=== PATIENT | female | born 1955 | race Caucasian/White ===

== ENCOUNTER 2016-11-06 12:51 | Emergency (ER) | payer MEDICAID, OTHER ==
[~2016-11-06] VITALS: Ht 160 cm; Wt 59.0 kg
[~2016-11-06 12:51] MED LIST: ASPI-869 PO; TRAM7.5P2 PO
[2016-11-06 13:58] LABS: BASOPHILS # (AUTO) 0.1 /CMM (0.0-0.2); BASOPHILS % (AUTO) 1.8 % (0.0-2.0); DIFF TOTAL % 100 %; EOSINOPHILS # (AUTO) 0.1 /CMM (0.0-0.7); HEMATOCRIT 51 % (33-45); HEMOGLOBIN 17.2 g/dL (11.5-14.8); LYMPHOCYTES # (AUTO) 1.1 /CMM (0.8-4.8); MEAN CORPUSCULAR HEMOGLOBIN 29 PG (26.0-33.0); MEAN CORPUSCULAR HGB CONC 34 g/dl (31.0-36.0); MEAN CORPUSCULAR VOLUME 87 fL (82-100); MONOCYTES # (AUTO) 0.5 /CMM (0.1-1.30); NEUTROPHILS # (AUTO) 4.8 /CMM (1.8-8.9); NEUTROPHILS % (AUTO) 73.2 % (43.0-81.0); PLATELET COUNT (AUTO) 181 /CMM (150-450); RED BLOOD CELL COUNT(AUTO) 5.87 MIL/uL (4.0-5.2); WHITE BLOOD COUNT (AUTO) 6.6 K/uL (4.3-11.0)
[2016-11-06] MEDS ORDERED: IV NS 0.9% 1,000 ML BAG IV ONE ×2 (14:00→14:30)
[2016-11-06 14:10] LABS: CALCIUM, SERUM 9.5 mg/dL (8.5-10.1); POTASSIUM 3.9 mmol/L (3.5-5.1)
[2016-11-06 14:20] LABS: ALBUMIN 3.9 g/dL (3.4-5.0); BILIRUBIN,DIRECT 0.1 mg/dL (0.0-0.2); BILIRUBIN,TOTAL 0.5 mg/dL (0.2-1.0); INDIRECT BILIRUBIN 0.4 mg/dL (0.0-1.1); TOTAL PROTEIN, SERUM 7.9 g/dL (6.4-8.2)
[2016-11-06] MEDS ORDERED: MORPHINE SULFATE INJ 4 MG/ML DISP.SYRIN ONE (14:21)
[2016-11-06] MEDS ORDERED: IV SET PRIMARY 1 EA INFUS.SET MC ONE (14:21)
[2016-11-06] MEDS ORDERED: ONDANSETRON HCL/PF 4 MG/2 ML VIAL ONE (14:21)
[2016-11-06] MEDS ORDERED: IV NS 0.9% 1,000 ML ONE (14:21)
[2016-11-06] MEDS ORDERED: MORPHINE SULFATE INJ 2 MG/ML DISP.SYRIN IV ONE (14:30)
[2016-11-06] MEDS ORDERED: ONDANSETRON HCL/PF 4 MG/2 ML VIAL IVP ONE (14:30)
[2016-11-06] MEDS ORDERED: IV NS 0.9% 250 ML IV ONE (15:13)
[2016-11-06] MEDS ORDERED: IOHEXOL-300 100 ML VIAL IV ONE (15:13)
[2016-11-06] MEDS ORDERED: CT SWABBABLE VALVE TRANS SET 1 EA INFUS.SET MC ONE (15:13)
[2016-11-06 16:15] LABS: ADD UA MICROSCOPIC YES; KETONES,URINE Negative (NEGATIVE); LEUKOCYTE ESTERASE ,URINE Trace (NEGATIVE)
[2016-11-06 16:20] LABS: ADD URINE CULTURE NO
[2016-11-06 17:00] VITALS: BP 132/68
== END 2016-11-06 17:00 | disposition home or self-care (01) ==
LOC: ER 12:53
DX: R10.30 Lower abdominal pain, unspecified (principal); J44.9 Chronic obstructive pulmonary disease, unspecified; Z88.5 Allergy status to narcotic agent; Z88.6 Allergy status to analgesic agent; Z59.0 Homelessness
CPT/HCPCS: 36415; 80048-TC; 80076-TC; 81000-TC; 83690-TC; 85025-TC; A4606; J2270; J2405; J7030; J7050; Q9967; Z7610

== ENCOUNTER 2016-11-11 14:13 | Emergency (ER) | payer MEDICAID ==
[~2016-11-11] VITALS: Ht 160 cm; Wt 49.9 kg
[2016-11-11] MEDS ORDERED: TRAMADOL HCL 50 MG TABLET PO ONE (14:30)
[2016-11-11] MEDS ORDERED: TRAMADOL HCL 50 MG TABLET ONE (14:36)
== END 2016-11-11 14:50 | disposition home or self-care (01) ==
LOC: ER 14:14
DX: R10.9 Unspecified abdominal pain (principal); J44.9 Chronic obstructive pulmonary disease, unspecified; N83.209 Unspecified ovarian cyst, unspecified side; Z59.0 Homelessness; Z79.82 Long term (current) use of aspirin; Z87.442 Personal history of urinary calculi; Z88.6 Allergy status to analgesic agent
CPT/HCPCS: 99283; A4606

== ENCOUNTER 2016-12-10 15:28 | Emergency (ER) | payer MEDICAID ==
[~2016-12-10] VITALS: Ht 160 cm; Wt 49.9 kg
[2016-12-10 15:38] VITALS: BP 117/88
[2016-12-10] MEDS ORDERED: IBUPROFEN 600 MG TABLET PO ONE ×2 (16:00→16:12)
== END 2016-12-10 16:35 | disposition left against medical advice (07) ==
LOC: ER 15:32
DX: M54.5 Low back pain (principal); J44.9 Chronic obstructive pulmonary disease, unspecified; N83.209 Unspecified ovarian cyst, unspecified side; Z88.5 Allergy status to narcotic agent; Z88.8 Allergy status to other drugs, medicaments and biological substances; Z59.0 Homelessness; Z79.82 Long term (current) use of aspirin; Z87.442 Personal history of urinary calculi; W01.198A Fall on same level from slipping, tripping and stumbling with subsequent striking against other object, initial encounter; Y92.89 Other specified places as the place of occurrence of the external cause; Y93.89 Activity, other specified; Y99.8 Other external cause status
CPT/HCPCS: A4606; Z7610

== ENCOUNTER → 2017-01-03 | Emergency (ER) | payer MEDICAID ==
[~2017-01-03] VITALS: Ht 157.5 cm; Wt 49.9 kg
[~2017-01-03] MED LIST changes: +TRAMADOL HCL 50 MG TABLET ONE; +TRAMADOL HCL 50 MG TABLET PO STA
[2017-01-03 14:56] VITALS: BP 125/68
== END | disposition home or self-care (01) ==
LOC: ER 14:47
DX: M54.5 Low back pain (principal); J44.9 Chronic obstructive pulmonary disease, unspecified; N20.0 Calculus of kidney; Z88.6 Allergy status to analgesic agent; Z79.82 Long term (current) use of aspirin; Z98.890 Other specified postprocedural states
CPT/HCPCS: A4606; Z7610

== ENCOUNTER 2017-04-03 10:16 | Emergency (ER) | payer MEDICAID ==
[~2017-04-03] VITALS: Ht 160 cm; Wt 49.9 kg
[~2017-04-03 10:16] MED LIST changes: -TRAMADOL HCL 50 MG TABLET ONE; -TRAMADOL HCL 50 MG TABLET PO STA
[2017-04-03 10:44] LABS: BASOPHILS # (AUTO) 0.1 /CMM (0.0-0.2); BASOPHILS % (AUTO) 1.1 % (0.0-2.0); EOSINOPHILS # (AUTO) 0.1 /CMM (0.0-0.7); EOSINOPHILS % (AUTO) 0.9 % (0.0-6.0); HEMATOCRIT 48 % (33-45); LYMPHOCYTES # (AUTO) 0.9 /CMM (0.8-4.8); LYMPHOCYTES % (AUTO) 14.4 % (20.0-44.0); MEAN CORPUSCULAR HEMOGLOBIN 30 PG (26.0-33.0); MEAN CORPUSCULAR HGB CONC 34 g/dl (31.0-36.0); MEAN CORPUSCULAR VOLUME 89 fL (82-100); MONOCYTES # (AUTO) 0.3 /CMM (0.1-1.30); NEUTROPHILS # (AUTO) 5.1 /CMM (1.8-8.9); NEUTROPHILS % (AUTO) 79.6 % (43.0-81.0); PLATELET COUNT (AUTO) 217 /CMM (150-450); RDW COEFFICIENT OF VARIATION 12.6 (11.5-15.0); RED BLOOD CELL COUNT(AUTO) 5.38 MIL/uL (4.0-5.2); WHITE BLOOD COUNT (AUTO) 6.5 K/uL (4.3-11.0)
[2017-04-03 10:52] LABS: CALCIUM, SERUM 9.5 mg/dL (8.5-10.1); POTASSIUM 4.1 mmol/L (3.5-5.1)
[2017-04-03] MEDS ORDERED: MORPHINE SULFATE INJ 2 MG/ML DISP.SYRIN IV ONE (11:00)
[2017-04-03] MEDS ORDERED: ONDANSETRON HCL/PF 4 MG/2 ML VIAL IVP ONE (11:00)
[2017-04-03] MEDS ORDERED: IV NS 0.9% 1,000 ML BAG IV ONE (11:00)
[2017-04-03] MEDS ORDERED: ONDANSETRON HCL/PF 4 MG/2 ML VIAL ONE (11:14)
[2017-04-03] MEDS ORDERED: MORPHINE SULFATE INJ 4 MG/ML DISP.SYRIN ONE (11:14)
[2017-04-03] MEDS ORDERED: IV SET PRIMARY 1 EA INFUS.SET MC ONE (11:15)
[2017-04-03] MEDS ORDERED: IV NS 0.9% 1,000 ML ONE (11:15)
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
--- NOTE | 2017-04-03 11:47 | NUR ---
PT REPORTS ADEQUATE PAIN RELIEF WITH MEDICATION ORDERED
[2017-04-03 12:01] LABS: APPEARANCE,URINE Slightly Cloudy (CLEAR); BILIRUBIN,URINE SMALL (NEGATIVE); BLOOD, URINE Large Ery/uL (NEGATIVE); COLOR,URINE Yellow (YELLOW); KETONES,URINE Trace (NEGATIVE); LEUKOCYTE ESTERASE ,URINE Small (NEGATIVE); NITRITE, URINE Negative (NEGATIVE); PROTEIN,URINE 100 mg/dl (NEGATIVE); UGLUCOSE Negative (NEGATIVE); UROBILINOGEN,URINE 0.2 EU/dL (0.2)
[2017-04-03 12:10] LABS: BACTERIA,URINE None seen /HPF (None Seen); RBC,URINE TOO NUMEROUS TO COUN /HPF (0-2); SQUAMOUS EPITHELIAL CELL,UR Few /HPF (None Seen)
--- NOTE | 2017-04-03 12:47 | NUR ---
Patient discharged to home in stable condition. Written and verbal after care instructions given. Patient verbalizes understanding of instruction. IV removed. Catheter intact and site benign. Pressure and 4x4 applied to site. No bleeding noted. AMBULATORY WITH STEADY GAIT. NAD NOTED.
[2017-04-03 12:48] VITALS: BP 124/85
== END 2017-04-03 12:49 | disposition home or self-care (01) ==
LOC: ER 10:17
DX: R31.9 Hematuria, unspecified (principal); R10.9 Unspecified abdominal pain; N83.209 Unspecified ovarian cyst, unspecified side; J44.9 Chronic obstructive pulmonary disease, unspecified; Z88.5 Allergy status to narcotic agent; Z88.6 Allergy status to analgesic agent; Z59.0 Homelessness
CPT/HCPCS: 36415; 80048-TC; 81000-TC; 85025-TC; A4606; J2270; J2405; J7030; Z7610

== ENCOUNTER 2017-04-30 10:29 | Emergency (ER) | payer MEDICAID ==
[~2017-04-30] VITALS: Ht 160 cm; Wt 49.9 kg
[2017-04-30 10:29] VITALS: BP 127/75
== END 2017-04-30 11:05 | disposition home or self-care (01) ==
LOC: ER 10:32
DX: M54.5 Low back pain (principal); J44.9 Chronic obstructive pulmonary disease, unspecified; N83.209 Unspecified ovarian cyst, unspecified side; Z88.5 Allergy status to narcotic agent; Z88.6 Allergy status to analgesic agent; Z87.442 Personal history of urinary calculi; Z79.82 Long term (current) use of aspirin; Z59.0 Homelessness
CPT/HCPCS: A4606; Z7502; Z7610

== ENCOUNTER 2017-05-26 12:38 | Inpatient (IN) | payer MEDICAID ==
[~2017-05-26] VITALS: Ht 160 cm; Wt 52.2 kg
[2017-05-26] MEDS ORDERED: MORPHINE SULFATE INJ 2 MG/ML DISP.SYRIN IV ONE (13:00)
[2017-05-26] MEDS ORDERED: ONDANSETRON HCL/PF 4 MG/2 ML VIAL IVP ONE (13:00)
[2017-05-26] MEDS ORDERED: IV NS 0.9% 1,000 ML BAG IV ONE (13:00)
[2017-05-26] MEDS ORDERED: ONDANSETRON HCL/PF 4 MG/2 ML VIAL ONE (13:04)
[2017-05-26] MEDS ORDERED: MORPHINE SULFATE INJ 4 MG/ML DISP.SYRIN ONE (13:05)
[2017-05-26 13:06] LABS: BASOPHILS # (AUTO) 0.1 /CMM (0.0-0.2); BASOPHILS % (AUTO) 1.2 % (0.0-2.0); EOSINOPHILS # (AUTO) 0.1 /CMM (0.0-0.7); EOSINOPHILS % (AUTO) 2.4 % (0.0-6.0); HEMATOCRIT 28 % (33-45); HEMOGLOBIN 9.5 g/dL (11.5-14.8); LYMPHOCYTES # (AUTO) 1.5 /CMM (0.8-4.8); LYMPHOCYTES % (AUTO) 30.3 % (20.0-44.0); MEAN CORPUSCULAR HEMOGLOBIN 29 PG (26.0-33.0); MEAN CORPUSCULAR HGB CONC 34 g/dl (31.0-36.0); MEAN CORPUSCULAR VOLUME 86 fL (82-100); MONOCYTES # (AUTO) 0.3 /CMM (0.1-1.30); MONOCYTES % (AUTO) 6.4 % (2.0-12.0); NEUTROPHILS # (AUTO) 3.1 /CMM (1.8-8.9); NEUTROPHILS % (AUTO) 59.7 % (43.0-81.0); PLATELET COUNT (AUTO) 208 /CMM (150-450); RDW COEFFICIENT OF VARIATION 13.4 (11.5-15.0); RED BLOOD CELL COUNT(AUTO) 3.29 MIL/uL (4.0-5.2); WHITE BLOOD COUNT (AUTO) 5.1 K/uL (4.3-11.0)
[2017-05-26 13:14] LABS: CALCIUM, SERUM 8.5 mg/dL (8.5-10.1); CREATININE 1.1 mg/dL (0.6-1.3)
[2017-05-26 13:27] LABS: ALBUMIN 3.3 g/dL (3.4-5.0); BILIRUBIN,TOTAL 0.2 mg/dL (0.2-1.0); INR 0.92 (0.87-1.13); PROTHROMBIN TIME 9.6 SECS (9.5-12.7); TOTAL PROTEIN, SERUM 6.4 g/dL (6.4-8.2)
[2017-05-26] MEDS ORDERED: FAMOTIDINE/PF INJ 20 MG/2 ML VIAL IV ONE ×2 (13:30)
[2017-05-26 13:57] LABS: APPEARANCE,URINE SL CLOUDY (CLEAR); BILIRUBIN,URINE NEGATIVE (NEGATIVE); BLOOD, URINE 2+ Ery/uL (NEGATIVE); COLOR,URINE YELLOW (YELLOW); KETONES,URINE NEGATIVE (NEGATIVE); LEUKOCYTE ESTERASE ,URINE TRACE (NEGATIVE); NITRITE, URINE NEGATIVE (NEGATIVE); PROTEIN,URINE NEGATIVE (NEGATIVE); UGLUCOSE NEGATIVE (NEGATIVE); UROBILINOGEN,URINE 0.2 EU/dL (0.2)
[2017-05-26 14:00] LABS: BACTERIA,URINE Few /HPF (None Seen); SQUAMOUS EPITHELIAL CELL,UR Few /HPF (None Seen); WBC,URINE 0-2 /HPF (0-3)
[2017-05-26] MEDS ORDERED: TRAM50TA92 PO (15:55)
[2017-05-26] MEDS ORDERED: IV NS 0.9% 1,000 ML IV PRN (17:07)
[2017-05-26] MEDS ORDERED: MAGNESIUM HYDROXIDE 30 ML UDC PO PRN (17:30)
[2017-05-26] MEDS ORDERED: ZOLPIDEM TARTRATE 5 MG TABLET PO PRN (17:30)
[2017-05-26] MEDS ORDERED: MAG HYDROX/AL HYDROX/SIMETH 30 ML UDC PO PRN (17:30)
[2017-05-26] MEDS ORDERED: Z GUARD REMEDY 2 OZ OINT TP PRN (17:30)
[2017-05-26] MEDS ORDERED: ONDANSETRON HCL/PF 4 MG/2 ML VIAL IVP PRN (17:30)
[2017-05-26] MEDS ORDERED: TRAMADOL HCL 50 MG TABLET PO PRN (17:30)
[2017-05-26] MEDS ORDERED: ACETAMINOPHEN 325 MG TABLET PO PRN (17:30)
[2017-05-26] MEDS ORDERED: HYDROCODONE/APAP 5/325MG 1 EACH TABLET PO PRN (17:30)
[2017-05-26 18:13] VITALS: BP 106/80
[2017-05-26] MEDS ORDERED: MORPHINE SULFATE INJ 2 MG/ML DISP.SYRIN IV PRN (18:30)
[2017-05-26 20:00] VITALS: BP 114/75
[2017-05-26 20:01] VITALS: BP 114/75
[2017-05-27] MEDS ORDERED: MORPHINE SULFATE INJ 2 MG/ML DISP.SYRIN ONE (02:58)
[2017-05-27] MEDS: MORPHINE SULFATE INJ 2 MG/ML DISP.SYRIN IV PRN ×3 (02:59→12:23)
[2017-05-27 07:01] LABS: BASOPHILS % (AUTO) 0.6 % (0.0-2.0); EOSINOPHILS # (AUTO) 0.3 /CMM (0.0-0.7); EOSINOPHILS % (AUTO) 7.1 % (0.0-6.0); HEMATOCRIT 27 % (33-45); HEMOGLOBIN 9.1 g/dL (11.5-14.8); LYMPHOCYTES # (AUTO) 1.7 /CMM (0.8-4.8); LYMPHOCYTES % (AUTO) 37.2 % (20.0-44.0); MEAN CORPUSCULAR HEMOGLOBIN 30 PG (26.0-33.0); MEAN CORPUSCULAR HGB CONC 34 g/dl (31.0-36.0); MEAN CORPUSCULAR VOLUME 88 fL (82-100); MONOCYTES # (AUTO) 0.4 /CMM (0.1-1.30); MONOCYTES % (AUTO) 7.6 % (2.0-12.0); NEUTROPHILS # (AUTO) 2.2 /CMM (1.8-8.9); NEUTROPHILS % (AUTO) 47.5 % (43.0-81.0); PLATELET COUNT (AUTO) 192 /CMM (150-450); RDW COEFFICIENT OF VARIATION 13.9 (11.5-15.0); RED BLOOD CELL COUNT(AUTO) 3.09 MIL/uL (4.0-5.2); WHITE BLOOD COUNT (AUTO) 4.6 K/uL (4.3-11.0)
[2017-05-27 07:14] LABS: CALCIUM, SERUM 8.2 mg/dL (8.5-10.1); CREATININE 0.9 mg/dL (0.6-1.3); MAGNESIUM 1.7 mg/dL (1.8-2.4); PHOSPHORUS 2.7 mg/dL (2.5-4.9); POTASSIUM 3.4 mmol/L (3.5-5.1)
[2017-05-27] MEDS ORDERED: PANTOPRAZOLE 40 MG TABLET.DR PO SCH (07:30)
[2017-05-27 08:00] VITALS: BP 131/73
[2017-05-27] MEDS ORDERED: POTASSIUM CHLORIDE 20 MEQ TAB.PRT.SR PO SCH (10:30)
[2017-05-27] MEDS: Magnesium 1GM/D5W 100ML PREMIX 100 ML IV SCH ×2 (10:51→11:52)
== END 2017-05-27 15:00 | disposition home or self-care (01) | DRG 241 ==
LOC: ER 12:39 → MED 17:05
PROVIDERS: ADMIT Internal Medicine; ATTEND Internal Medicine
DX: K27.9 Peptic ulcer, site unspecified, unspecified as acute or chronic, without hemorrhage or perforation (principal); E83.42 Hypomagnesemia; D63.8 Anemia in other chronic diseases classified elsewhere; E87.6 Hypokalemia; J44.9 Chronic obstructive pulmonary disease, unspecified; K21.9 Gastro-esophageal reflux disease without esophagitis; Z87.442 Personal history of urinary calculi; Z79.82 Long term (current) use of aspirin; K92.0 Hematemesis; Z88.6 Allergy status to analgesic agent; Z88.5 Allergy status to narcotic agent; Z98.890 Other specified postprocedural states
CPT/HCPCS: 36415; 71010-TC; 80048-TC; 80061-TC; 80076-TC; 81000-TC; 83605-TC; 83690-TC; 83735-TC; 84100-TC; 85025-TC; 85730-TC; 87081-TC; A4606; J2270; J2405; J3475; J3490; J7030; Z7610

== ENCOUNTER 2017-10-17 10:15 | Emergency (ER) | payer MEDICAID ==
[~2017-10-17 10:15] MED LIST changes: +TRAM50TA PO; -TRAM7.5P2 PO
--- NOTE | 2017-10-17 11:00 | NUR ---
CALLED IN WR- NO ANSWER
--- NOTE | 2017-10-17 11:10 | NUR ---
CALLED IN WR- NO ANSWER
--- NOTE | 2017-10-17 11:21 | NUR ---
CALLED IN WR- NO ANSWER
== END 2017-10-17 11:22 | disposition left against medical advice (07) ==
LOC: ER 10:21
DX: Z53.21 Procedure and treatment not carried out due to patient leaving prior to being seen by health care provider (principal)

== ENCOUNTER 2017-11-05 09:02 | Emergency (ER) | payer MEDICAID ==
[~2017-11-05] VITALS: Ht 160 cm; Wt 49.9 kg
[2017-11-05 09:02] VITALS: BP 109/77
--- NOTE | 2017-11-05 09:02 | NUR ---
[id number] FROM THE BUS STOP FOR ABD PAIN W/ N/V X 2 DAYS. NAD VSS RR EVEN AND UNLABORED. PENDING ER MD EVALUATION
[2017-11-05] MEDS ORDERED: ONDANSETRON 4 MG TAB.RAPDIS SL ONE (09:30)
[2017-11-05 09:52] LABS: BASOPHILS % (AUTO) 0.5 % (0.0-2.0); EOSINOPHILS % (AUTO) 0.6 % (0.0-6.0); HEMATOCRIT 38 % (33-45); HEMOGLOBIN 12.2 g/dL (11.5-14.8); LYMPHOCYTES # (AUTO) 0.9 /CMM (0.8-4.8); LYMPHOCYTES % (AUTO) 12.1 % (20.0-44.0); MEAN CORPUSCULAR HEMOGLOBIN 23 PG (26.0-33.0); MEAN CORPUSCULAR HGB CONC 32 g/dl (31.0-36.0); MEAN CORPUSCULAR VOLUME 71 fL (82-100); MONOCYTES # (AUTO) 0.4 /CMM (0.1-1.30); MONOCYTES % (AUTO) 4.9 % (2.0-12.0); NEUTROPHILS # (AUTO) 6.3 /CMM (1.8-8.9); NEUTROPHILS % (AUTO) 81.9 % (43.0-81.0); PLATELET COUNT (AUTO) 262 /CMM (150-450); RDW COEFFICIENT OF VARIATION 18.4 (11.5-15.0); RED BLOOD CELL COUNT(AUTO) 5.36 MIL/uL (4.0-5.2); WHITE BLOOD COUNT (AUTO) 7.6 K/uL (4.3-11.0)
[2017-11-05 10:00] LABS: CALCIUM, SERUM 9.2 mg/dL (8.5-10.1); CREATININE 1.1 mg/dL (0.6-1.3); POTASSIUM 4.1 mmol/L (3.5-5.1)
[2017-11-05 10:05] LABS: INR 0.95 (0.87-1.13)
[2017-11-05 10:06] LABS: BILIRUBIN,DIRECT 0.1 mg/dL (0.0-0.2); BILIRUBIN,TOTAL 0.4 mg/dL (0.2-1.0); TOTAL PROTEIN, SERUM 8.1 g/dL (6.4-8.2)
[2017-11-05] MEDS ORDERED: ONDANSETRON 4 MG TAB.RAPDIS ONE (10:15)
[2017-11-05 11:29] LABS: APPEARANCE,URINE SLIGHTLY HAZY (CLEAR); BILIRUBIN,URINE Negative (NEGATIVE); BLOOD, URINE Moderate Ery/uL (NEGATIVE); COLOR,URINE Yellow (YELLOW); KETONES,URINE Negative (NEGATIVE); LEUKOCYTE ESTERASE ,URINE Small (NEGATIVE); NITRITE, URINE Negative (NEGATIVE); PROTEIN,URINE Negative (NEGATIVE); UGLUCOSE Negative (NEGATIVE); UROBILINOGEN,URINE 0.2 EU/dL (0.2)
[2017-11-05 11:36] LABS: BACTERIA,URINE None seen /HPF (None Seen); SQUAMOUS EPITHELIAL CELL,UR Few /HPF (None Seen); YEAST,URINE Few /HPF (None Seen)
[2017-11-05] MEDS ORDERED: FLUCONAZOLE (100 MG) 100 MG TABLET ONE (12:14)
[2017-11-05] MEDS ORDERED: FLUCONAZOLE (100 MG) 100 MG TABLET PO ONE (12:30)
[2017-11-05] MEDS ORDERED: TRAMADOL HCL 50 MG TABLET ONE (12:51)
[2017-11-05] MEDS ORDERED: TRAMADOL HCL 50 MG TABLET PO ONE (13:00)
== END 2017-11-05 13:21 | disposition home or self-care (01) ==
LOC: ER 09:04
DX: B37.41 Candidal cystitis and urethritis (principal); R10.33 Periumbilical pain; R11.2 Nausea with vomiting, unspecified; J44.9 Chronic obstructive pulmonary disease, unspecified; Z87.442 Personal history of urinary calculi; Z88.5 Allergy status to narcotic agent; Z88.6 Allergy status to analgesic agent; Z79.82 Long term (current) use of aspirin; Z60.2 Problems related to living alone
CPT/HCPCS: 36415; 80048; 80076; 81001; 83690; 85025; 85730; 87086; 99284; A4606; Q0162; Z7610; 81000-TC

== ENCOUNTER 2018-03-28 08:58 | Emergency (ER) | payer MEDICAID ==
[~2018-03-28] VITALS: Ht 160 cm; Wt 46.0 kg
--- NOTE | 2018-03-28 09:10 | NUR ---
CALLED PATIENT TO TRIAGE FROM WAITING ROOM - NO RESPONSE. UNABLE TO TRIAGE PATIENT AT THIS TIME. WILL TRY AGAIN SHORTLY.
[2018-03-28 10:20] LABS: CALCIUM, SERUM 10.4 mg/dL (8.5-10.1); CARBON DIOXIDE 24 mmol/L (21-32); CHLORIDE 106 mmol/L (98-107); CREATININE 1.1 mg/dL (0.6-1.3); GLUCOSE 101 mg/dL (74-106); POTASSIUM 4.1 mmol/L (3.5-5.1); SODIUM SERUM 138 mmol/L (136-145); UREA NITROGEN, BLOOD 20 mg/dL (7-18)
[2018-03-28 10:21] LABS: BASOPHILS % (AUTO) 0.4 % (0.0-2.0); EOSINOPHILS % (AUTO) 0.2 % (0.0-6.0); HEMATOCRIT 41 % (33-45); HEMOGLOBIN 13.2 g/dL (11.5-14.8); LYMPHOCYTES # (AUTO) 0.7 /CMM (0.8-4.8); LYMPHOCYTES % (AUTO) 11.4 % (20.0-44.0); MEAN CORPUSCULAR HGB CONC 32 g/dl (31.0-36.0); MEAN CORPUSCULAR VOLUME 76 fL (82-100); MONOCYTES # (AUTO) 0.2 /CMM (0.1-1.30); MONOCYTES % (AUTO) 3.2 % (2.0-12.0); NEUTROPHILS # (AUTO) 5.5 /CMM (1.8-8.9); NEUTROPHILS % (AUTO) 84.8 % (43.0-81.0); PLATELET COUNT (AUTO) 257 /CMM (150-450); RDW COEFFICIENT OF VARIATION 18.9 (11.5-15.0); RED BLOOD CELL COUNT(AUTO) 5.38 MIL/uL (4.0-5.2); WHITE BLOOD COUNT (AUTO) 6.4 K/uL (4.3-11.0)
[2018-03-28 10:26] LABS: ALANINE AMINOTRANSFERASE 147 U/L (12-78); ALKALINE PHOSPHATASE 199 U/L (46-116); ASPARTATE AMINOTRANSFERASE 67 U/L (15-37); BILIRUBIN,DIRECT 0.1 mg/dL (0.0-0.2); BILIRUBIN,TOTAL 0.3 mg/dL (0.2-1.0); LIPASE 88 U/L (73-393); TOTAL PROTEIN, SERUM 8.6 g/dL (6.4-8.2)
[2018-03-28 10:38] LABS: INR 0.94 (0.85-1.15)
[2018-03-28 10:48] LABS: TROPONIN I < 0.017 ng/mL (0.00-0.056)
--- NOTE | 2018-03-28 11:25 | NUR ---
IV removed. Catheter intact and site benign. Pressure and 4x4 applied to site. No bleeding noted.
--- NOTE | 2018-03-28 11:25 | NUR ---
Patient discharged to home in stable condition. Written and verbal after care instructions given. Patient verbalizes understanding of instruction.
[2018-03-28 11:28] VITALS: BP 145/88
== END 2018-03-28 11:30 | disposition home or self-care (01) ==
LOC: ER 09:02
DX: K92.2 Gastrointestinal hemorrhage, unspecified (principal); R07.9 Chest pain, unspecified; J44.9 Chronic obstructive pulmonary disease, unspecified; Z88.6 Allergy status to analgesic agent; Z88.8 Allergy status to other drugs, medicaments and biological substances; Z60.2 Problems related to living alone; Z79.82 Long term (current) use of aspirin
CPT/HCPCS: 36415; 71045-TC; 80048-TC; 80076-TC; 83690-TC; 84484-TC; 85025-TC; 85730-TC; A4606; Z7610

== ENCOUNTER 2019-11-27 11:52 | Emergency (ER) | payer MEDICAID ==
[~2019-11-27] VITALS: Ht 152.4 cm; Wt 52.2 kg
[2019-11-27] MEDS ORDERED: MORPHINE SULFATE INJ 2 MG/ML DISP.SYRIN ONE (12:26)
--- NOTE | 2019-11-27 12:28 | NUR ---
BIB RA FROM STREET C/O SOB AND WEAKNESS. "I HAVE PAIN EVERYWHERE". PT REPORTS PAIN OF 9/10 AND IS VISUALLY UPSET. PT IS HOMELESS. AOX4, VSS, RR EVEN AND UNLABORED ON RA. AMBULATORY. SKIN IS WARM, DRY, INTACT. NO ACUTE DISTRESS NOTED. MADE COMFORTABLE, ON MONITOR, READY FOR EVAL.
[2019-11-27] MEDS ORDERED: MORPHINE SULFATE INJ 2 MG/ML DISP.SYRIN IV ONE (12:30)
[2019-11-27 12:42] LABS: BASOPHILS # (AUTO) 0.1 /CMM (0.0-0.2); BASOPHILS % (AUTO) 1.3 % (0.0-2.0); EOSINOPHILS % (AUTO) 0.9 % (0.0-6.0); HEMATOCRIT 41 % (33-45); HEMOGLOBIN 13.3 g/dL (11.5-14.8); LYMPHOCYTES # (AUTO) 1.2 /CMM (0.8-4.8); MEAN CORPUSCULAR HGB CONC 32 g/dl (31.0-36.0); MEAN CORPUSCULAR VOLUME 82 fL (82-100); MONOCYTES # (AUTO) 0.7 /CMM (0.1-1.30); NEUTROPHILS # (AUTO) 6.8 /CMM (1.8-8.9); NEUTROPHILS % (AUTO) 75.8 % (43.0-81.0); PLATELET COUNT (AUTO) 301 /CMM (150-450); RED BLOOD CELL COUNT(AUTO) 5.06 MIL/uL (4.0-5.2); WHITE BLOOD COUNT (AUTO) 8.9 K/uL (4.3-11.0)
[2019-11-27 12:50] LABS: CALCIUM, SERUM 10.2 mg/dL (8.5-10.1); CARBON DIOXIDE 25 mmol/L (21-32); CHLORIDE 102 mmol/L (98-107); CREATININE 1.2 mg/dL (0.6-1.3); GLUCOSE 98 mg/dL (74-106); POTASSIUM 3.7 mmol/L (3.5-5.1); SODIUM SERUM 141 mmol/L (136-145); UREA NITROGEN, BLOOD 29 mg/dL (7-18)
--- NOTE | 2019-11-27 12:50 | NUR ---
URINE SENT TO STAT LAB
[2019-11-27 13:01] LABS: ALANINE AMINOTRANSFERASE 67 U/L (12-78); ALBUMIN 4.4 g/dL (3.4-5.0); ALKALINE PHOSPHATASE 166 U/L (46-116); ASPARTATE AMINOTRANSFERASE 46 U/L (15-37); BILIRUBIN,DIRECT 0.2 mg/dL (0.0-0.2); BILIRUBIN,TOTAL 0.7 mg/dL (0.2-1.0); LIPASE 98 U/L (73-393)
--- NOTE | 2019-11-27 13:05 | NUR ---
LAB NEEDS MORE URINE, PT GIVEN WATER
--- NOTE | 2019-11-27 13:43 | NUR ---
URINE ORDER DC PER
--- NOTE | 2019-11-27 13:56 | NUR ---
Patient discharged to home in stable condition. Written and verbal after care instructions given. Patient verbalizes understanding of instruction. PT GIVEN FOOD AND TAP CARD ON DISCHARGE
[2019-11-27 14:11] VITALS: BP 138/76
== END 2019-11-27 14:11 | disposition home or self-care (01) ==
LOC: ER 11:54
DX: R10.30 Lower abdominal pain, unspecified (principal); R11.0 Nausea; J44.9 Chronic obstructive pulmonary disease, unspecified; Z87.442 Personal history of urinary calculi; Z98.890 Other specified postprocedural states; Z88.6 Allergy status to analgesic agent; Z88.5 Allergy status to narcotic agent; Z60.2 Problems related to living alone; Z79.82 Long term (current) use of aspirin; Z79.899 Other long term (current) drug therapy
CPT/HCPCS: 36415; 71045; 80048; 80076; 83690; 84484; 85025; 96374; 99284; J2270

== ENCOUNTER 2020-06-22 12:38 | Emergency (ER) | payer MEDICAID ==
[~2020-06-22] VITALS: Ht 157.5 cm; Wt 52.2 kg
[2020-06-22 12:47] VITALS: BP 155/99
[2020-06-22] MEDS ORDERED: TRAMADOL HCL 50 MG TABLET ONE (12:54)
[2020-06-22] MEDS ORDERED: TRAMADOL HCL 50 MG TABLET PO ONE (13:00)
== END 2020-06-22 13:04 | disposition home or self-care (01) ==
LOC: ER 12:43
DX: M54.9 Dorsalgia, unspecified (principal); J44.9 Chronic obstructive pulmonary disease, unspecified; Z87.442 Personal history of urinary calculi; Z98.890 Other specified postprocedural states; Z88.6 Allergy status to analgesic agent; Z88.5 Allergy status to narcotic agent; Z60.2 Problems related to living alone; Z79.899 Other long term (current) drug therapy

== ENCOUNTER 2021-05-16 11:17 | Emergency (ER) | payer MEDICAID ==
[~2021-05-16] VITALS: Ht 157.5 cm; Wt 53.1 kg
[2021-05-16 11:29] VITALS: BP 110/71
--- NOTE | 2021-05-16 11:40 | NUR ---
PT REFUSED COVID TEST.
--- NOTE | 2021-05-16 11:45 | NUR ---
Patient discharged to home in stable condition. Written and verbal after care instructions given. Patient verbalizes understanding of instruction.
== END 2021-05-16 11:47 | disposition home or self-care (01) ==
LOC: ER 11:17
DX: M54.5 Low back pain (principal); G89.29 Other chronic pain; J44.9 Chronic obstructive pulmonary disease, unspecified; Z87.442 Personal history of urinary calculi; Z98.890 Other specified postprocedural states; Z88.6 Allergy status to analgesic agent; Z88.5 Allergy status to narcotic agent; Z60.2 Problems related to living alone; Z79.82 Long term (current) use of aspirin; Z79.899 Other long term (current) drug therapy

== ENCOUNTER 2022-02-25 15:47 | Emergency (ER) | payer MEDICAID ==
[~2022-02-25] VITALS: Ht 157.5 cm; Wt 49.9 kg
[2022-02-25 15:51] VITALS: BP 116/75
--- NOTE | 2022-02-25 15:51 | NUR ---
[facility] C/O ABD PAIN AND LOWER BACK PAIN x 2DAYS, TO ER 19, HOOKED TO MONITOR, VSS. CHANGED TO HOSP GOWN,WARM BLANKET PROVIDED. AWAITING MD SWIFT
--- NOTE | 2022-02-25 15:59 | NUR ---
URINE SPECIMEN COLLECTED AND SENT TO LAB.
[2022-02-25 16:21] LABS: BILIRUBIN,URINE NEGATIVE (NEGATIVE); COLOR,URINE YELLOW (YELLOW); LEUKOCYTE ESTERASE ,URINE SMALL (NEGATIVE); NITRITE, URINE NEGATIVE (NEGATIVE); PROTEIN,URINE NEGATIVE (NEGATIVE); UGLUCOSE NEGATIVE (NEGATIVE); UROBILINOGEN,URINE 0.2 EU/dL (0.2)
[2022-02-25 16:34] LABS: BACTERIA,URINE 2+ /HPF (None Seen); MUCUS,URINE Few /LPF (None Seen); SQUAMOUS EPITHELIAL CELL,UR Few /HPF (None Seen); URINE AMORPHOUS URATE Few /HPF (None Seen); WBC,URINE 81-100 /HPF (0-3)
[2022-02-25] MEDS ORDERED: TRAM50TA2 PO (17:05)
[2022-02-25] MEDS ORDERED: CEPH500C2 PO (17:05)
--- NOTE | 2022-02-25 17:07 | NUR ---
Patient discharged to home in stable condition. Written and verbal after care instructions given. Patient verbalizes understanding of instruction.
== END 2022-02-25 17:08 | disposition home or self-care (01) ==
LOC: ER 15:51
DX: N39.0 Urinary tract infection, site not specified (principal); J44.9 Chronic obstructive pulmonary disease, unspecified; Z98.890 Other specified postprocedural states; Z88.6 Allergy status to analgesic agent; Z60.2 Problems related to living alone; Z79.82 Long term (current) use of aspirin; Z79.899 Other long term (current) drug therapy
CPT/HCPCS: 81001; 87086-TC

== ENCOUNTER 2022-04-05 12:49 | Emergency (ER) | payer MEDICAID ==
[~2022-04-05] VITALS: Ht 160 cm; Wt 47.6 kg
[~2022-04-05 12:49] MED LIST changes: +CEPH500C2 PO; +TRAM50TA2 PO
--- NOTE | 2022-04-05 12:55 | NUR ---
[facility] C/O LOWER BACK PAIN x 2DAYS. 9/10 PS, NO TRAUMA. RATES PAIN /10. IN ROOM AIR AND DENIES SOB. RESPIRATION REGULAR AND UNLABORED. WILL CONTINUE TO MONITOR THE PATIENT
[2022-04-05] MEDS ORDERED: TRAMADOL HCL 50 MG TABLET PO ONE (14:30)
--- NOTE | 2022-04-05 14:34 | NUR ---
URINE COLLECTED AND SENT TO THE LAB
[2022-04-05 15:31] LABS: BILIRUBIN,URINE NEGATIVE (NEGATIVE); COLOR,URINE YELLOW (YELLOW); LEUKOCYTE ESTERASE ,URINE MODERATE (NEGATIVE); NITRITE, URINE NEGATIVE (NEGATIVE); PROTEIN,URINE 30 mg/dl (NEGATIVE); UGLUCOSE NEGATIVE (NEGATIVE); UROBILINOGEN,URINE 0.2 EU/dL (0.2)
[2022-04-05 15:49] LABS: BACTERIA,URINE 2+ /HPF (None Seen); RBC,URINE 51-80 /HPF (0-2); WBC,URINE TOO NUMEROUS TO COUN /HPF (0-3)
[2022-04-05 15:50] LABS: SQUAMOUS EPITHELIAL CELL,UR Few /HPF (None Seen); YEAST,URINE Few /HPF (None Seen)
[2022-04-05] MEDS ORDERED: TRAM-351 PO (15:59)
[2022-04-05] MEDS ORDERED: SULF1TAB48 PO (15:59)
[2022-04-05] MEDS ORDERED: TRAM50TA2 PO (16:28)
[2022-04-05 16:48] VITALS: BP 121/47
[2022-04-11] MEDS ORDERED: NAPR-1192 PO (15:41)
== END 2022-04-05 16:48 | disposition home or self-care (01) ==
LOC: ER 12:52
DX: M54.50 Low back pain, unspecified (principal); N39.0 Urinary tract infection, site not specified; J44.9 Chronic obstructive pulmonary disease, unspecified; Z87.442 Personal history of urinary calculi; Z87.42 Personal history of other diseases of the female genital tract; Z88.8 Allergy status to other drugs, medicaments and biological substances; Z60.2 Problems related to living alone; Z79.899 Other long term (current) drug therapy
CPT/HCPCS: 81001; 87086-TC

== ENCOUNTER 2022-04-09 11:26 | Emergency (ER) | payer MEDICAID ==
[~2022-04-09] VITALS: Ht 160 cm; Wt 47.6 kg
[~2022-04-09 11:26] MED LIST changes: +SULF1TAB48 PO
[2022-04-09 11:30] VITALS: BP 110/61
--- NOTE | 2022-04-09 11:30 | NUR ---
c/o lower back pain since yesterday 12/22 ps
[2022-04-09] MEDS ORDERED: TRAMADOL HCL 50 MG TABLET PO ONE (12:30)
[2022-04-09] MEDS ORDERED: TRAMADOL HCL 50 MG TABLET ONE (12:33)
--- NOTE | 2022-04-09 12:36 | NUR ---
Patient discharged to home in stable condition. Written and verbal after care instructions given. Patient verbalizes understanding of instruction.
[2022-04-11] MEDS ORDERED: NAPR-1192 PO (15:41)
== END 2022-04-09 12:36 | disposition home or self-care (01) ==
LOC: ER 11:30
DX: G89.29 Other chronic pain (principal); M54.50 Low back pain, unspecified; J44.9 Chronic obstructive pulmonary disease, unspecified; Z87.442 Personal history of urinary calculi; Z87.42 Personal history of other diseases of the female genital tract; Z88.8 Allergy status to other drugs, medicaments and biological substances; Z60.2 Problems related to living alone; Z79.899 Other long term (current) drug therapy

== ENCOUNTER → 2022-04-11 | Emergency (ER) | payer MEDICAID ==
[~2022-04-11] VITALS: Ht 160 cm; Wt 49.9 kg
[~2022-04-11] MED LIST changes: +NAPR-1192 PO; +NAPROXEN 250 MG TABLET ONE
[2022-04-11 14:11] VITALS: BP 139/85
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
[2022-04-11] MEDS: NAPROXEN 250 MG TABLET PO ONE ×2 (15:17→15:31)
--- NOTE | 2022-04-11 15:44 | NUR ---
Patient discharged to home in stable condition. Written and verbal after care instructions given. Patient verbalizes understanding of instruction.
== END | disposition home or self-care (01) ==
LOC: ER 14:20
DX: M54.50 Low back pain, unspecified (principal); J44.9 Chronic obstructive pulmonary disease, unspecified; Z87.442 Personal history of urinary calculi; Z87.42 Personal history of other diseases of the female genital tract; Z88.8 Allergy status to other drugs, medicaments and biological substances; Z60.2 Problems related to living alone; Z79.899 Other long term (current) drug therapy
CPT/HCPCS: 72110-TC

== ENCOUNTER 2022-04-18 16:37 | Emergency (ER) | payer MEDICAID ==
[~2022-04-18] VITALS: Ht 160 cm; Wt 49.9 kg
[~2022-04-18 16:37] MED LIST changes: -NAPROXEN 250 MG TABLET ONE
[2022-04-18 17:37] VITALS: BP 132/89
[2022-04-18] MEDS ORDERED: PRED20TA PO (17:56)
[2022-04-18] MEDS ORDERED: CYCL5TAB PO (17:56)
--- NOTE | 2022-04-18 18:09 | NUR ---
REFUSED PRESCRIPTION SINCE IT WASN'T TRAMADOL
== END 2022-04-18 18:09 | disposition home or self-care (01) ==
LOC: ER 16:38
DX: G89.29 Other chronic pain (principal); M54.50 Low back pain, unspecified; J44.9 Chronic obstructive pulmonary disease, unspecified; Z87.442 Personal history of urinary calculi; Z87.42 Personal history of other diseases of the female genital tract; Z88.8 Allergy status to other drugs, medicaments and biological substances; Z60.2 Problems related to living alone; Z79.899 Other long term (current) drug therapy

== ENCOUNTER 2024-11-10 01:57 | Inpatient (IN) | payer MEDICAID, OTHER ==
[~2024-11-10] VITALS: Ht 157.5 cm; Wt 65.3 kg
[~2024-11-10 01:57] MED LIST changes: +CYCL5TAB PO; +LEVO750T46 PO; +PRED20TA PO
[2024-11-10] MEDS: IV NS 0.9% 1,000 ML IV ONE ×2 (03:00→05:30)
[2024-11-10 03:08] LABS: APPEARANCE,URINE CLEAR (CLEAR); BILIRUBIN,URINE NEGATIVE (NEGATIVE); BLOOD, URINE 2+ Ery/uL (NEGATIVE); COLOR,URINE YELLOW (YELLOW); KETONES,URINE NEGATIVE (NEGATIVE); LEUKOCYTE ESTERASE ,URINE TRACE (NEGATIVE); NITRITE, URINE NEGATIVE (NEGATIVE); PROTEIN,URINE 2+ mg/dl (NEGATIVE); UGLUCOSE NEGATIVE (NEGATIVE); UROBILINOGEN,URINE 0.2 EU/dL (0.2)
[2024-11-10 03:10] LABS: BASOPHILS % (AUTO) 0.3 % (0.0-2.0); EOSINOPHILS % (AUTO) 0.2 % (0.0-6.0); HEMATOCRIT 47 % (33-45); HEMOGLOBIN 15.6 g/dL (11.5-14.8); LYMPHOCYTES # (AUTO) 0.5 K/uL (0.8-4.8); LYMPHOCYTES % (AUTO) 4.7 % (20.0-44.0); MEAN CORPUSCULAR HEMOGLOBIN 28 PG (26.0-33.0); MEAN CORPUSCULAR HGB CONC 33 g/dl (31.0-36.0); MEAN CORPUSCULAR VOLUME 84 fL (82-100); MONOCYTES # (AUTO) 0.7 K/uL (0.1-1.30); MONOCYTES % (AUTO) 6.7 % (2.0-12.0); NEUTROPHILS # (AUTO) 9.2 K/uL (1.8-8.9); NEUTROPHILS % (AUTO) 88.1 % (43.0-81.0); PLATELET COUNT (AUTO) 151 K/uL (150-450); RED BLOOD CELL COUNT(AUTO) 5.65 MIL/uL (4.0-5.2); RED CELL DISTRIBUTION WIDTH 19.2 % (11.5-15.0); WHITE BLOOD COUNT (AUTO) 10.4 K/uL (4.3-11.0)
[2024-11-10 03:11] LABS: ADD URINE CULTURE NO; BACTERIA,URINE Few /HPF (None Seen)
[2024-11-10 03:12] LABS: MUCUS,URINE Moderate /LPF (None Seen)
[2024-11-10 03:14] LABS: CALCIUM, SERUM 9.8 mg/dL (8.5-10.1); CREATININE 1.1 mg/dL (0.6-1.3); POTASSIUM 4.1 mmol/L (3.5-5.1)
[2024-11-10 03:27] LABS: ALBUMIN 3.7 g/dL (3.4-5.0); BILIRUBIN,TOTAL 0.6 mg/dL (0.2-1.0); TOTAL PROTEIN, SERUM 8.2 g/dL (6.4-8.2)
[2024-11-10] MEDS ORDERED: CEFTRIAXONE 1GM BAG (ER ONLY) 50 ML IV ONE (03:59)
[2024-11-10] MEDS: CEFTRIAXONE 1 G in IV D5W 50 ML IV ONE (04:00)
[2024-11-10] MEDS ORDERED: ONDANSETRON HCL/PF 4 MG/2 ML VIAL IVP PRN (05:30)
[2024-11-10] MEDS ORDERED: MAG HYDROX/AL HYDROX/SIMETH 30 ML UDC PO PRN (05:30)
[2024-11-10] MEDS ORDERED: ACETAMINOPHEN 325 MG TABLET PO PRN (05:30)
[2024-11-10] MEDS ORDERED: Z GUARD REMEDY 4 OZ OINT TP PRN (05:30)
[2024-11-10] MEDS: AZITHROMYCIN 500 MG in IV D5W 250 ML IV SCH (05:30)
[2024-11-10] MEDS ORDERED: ZOLPIDEM TARTRATE 5 MG TABLET PO PRN (05:30)
[2024-11-10] MEDS ORDERED: MAGNESIUM HYDROXIDE 30 ML UDC PO PRN ×2 (05:30→14:30)
[2024-11-10] MEDS ORDERED: AZITHROMYCIN 500 MG VIAL ONE (05:44)
[2024-11-10] MEDS ORDERED: ENOXAPARIN SODIUM 30 MG/0.3 ML DISP.SYRIN ONE (05:51)
[2024-11-10 05:58] LABS: LACTIC ACID 2.2 mmol/L (0.4-2.0)
[2024-11-10] MEDS ORDERED: AZITHROMYCIN 500 MG in IV D5W 250 ML IV SCH (06:00)
[2024-11-10] MEDS: ENOXAPARIN SODIUM 30 MG/0.3 ML DISP.SYRIN SQ SCH (06:01)
[2024-11-10] MEDS ORDERED: IPRATROPIUM NEB FS 0.5 MG/2.5 ML AMPUL.NEB NEB PRN (08:30)
[2024-11-10] MEDS ORDERED: ALBUTEROL FS 2.5 MG/3 ML VIAL.NEB NEB PRN (08:30)
[2024-11-10] MEDS ORDERED: CYCLOBENZAPRINE 10 MG TABLET PO PRN (09:00)
[2024-11-10] MEDS ORDERED: PANTOPRAZOLE 40 MG VIAL IV SCH (09:00)
[2024-11-10 09:21] LABS: LACTIC ACID REFLEX 1.9 mmol/L (0.4-1.9)
[2024-11-10 09:27] LABS: BILIRUBIN,DIRECT 0.1 mg/dL (0.0-0.2)
[2024-11-10] MEDS: TRAMADOL HCL 50 MG TABLET PO PRN (10:12)
[2024-11-10] MEDS: PANTOPRAZOLE 40 MG TABLET.DR PO SCH (10:12)
[2024-11-10] MEDS: ENOXAPARIN SODIUM 40 MG/0.4 ML DISP.SYRIN SQ SCH (10:13)
[2024-11-10] MEDS ORDERED: FAMO20TA8 PO (11:13)
[2024-11-10] MEDS ORDERED: TEMA15CA PO (11:13)
[2024-11-10] MEDS ORDERED: GABA300C PO (11:13)
[2024-11-10] MEDS ORDERED: FERR325T24 PO (11:13)
[2024-11-10] MEDS ORDERED: QUET300T2 PO (11:13)
[2024-11-10] MEDS ORDERED: LORA-259 PO (11:13)
[2024-11-10] MEDS ORDERED: DOCU100C36 PO (11:13)
[2024-11-10] MEDS ORDERED: ATOR40TA PO (11:13)
[2024-11-10] MEDS ORDERED: QUET200T PO (11:13)
[2024-11-10] MEDS ORDERED: MAGN400O6 PO (11:13)
[2024-11-10 12:00] VITALS: BP 145/88; TEMP 100; O2SAT 94
[2024-11-10] MEDS: MORPHINE SULFATE INJ 2 MG/ML DISP.SYRIN IV PRN (13:55)
[2024-11-10] MEDS: IV 1/2NS 1000 ML 1,000 ML IV PRN (13:57)
[2024-11-10] MEDS ORDERED: TEMAZEPAM 15 MG CAPSULE PO PRN (14:30)
[2024-11-10] MEDS ORDERED: LORAZEPAM 1 MG TABLET PO PRN (14:30)
[2024-11-10] MEDS: QUETIAPINE FUMARATE 100 MG TABLET PO SCH ×2 (14:31→22:00)
[2024-11-10 16:00] VITALS: BP 119/90; TEMP 98.8; O2SAT 94
[2024-11-10] MEDS: GABAPENTIN 300 MG CAPSULE PO SCH (16:25)
[2024-11-10] MEDS: DOCUSATE SODIUM 100 MG CAPSULE PO SCH (16:25)
[2024-11-10 20:00] VITALS: BP 153/86; TEMP 98.6; O2SAT 98
[2024-11-10] MEDS: ATORVASTATIN 40 MG TABLET PO SCH (22:00)
[2024-11-11] VITALS: BP 143/90; TEMP 98.8; O2SAT 95
[2024-11-11 04:00] VITALS: BP 120/80; TEMP 98.4; O2SAT 99
[2024-11-11] MEDS: CEFTRIAXONE 1 G in IV D5W 50 ML IV SCH (05:04)
[2024-11-11] MEDS: AZITHROMYCIN 500 MG in IV D5W 250 ML IV SCH (06:03)
[2024-11-11 07:00] VITALS: BP 131/81; TEMP 98.4; O2SAT 97
[2024-11-11 07:36] LABS: CREATININE 0.7 mg/dL (0.6-1.3); MAGNESIUM 2.2 mg/dL (1.8-2.4); PHOSPHORUS 3.2 mg/dL (2.5-4.9); POTASSIUM 3.6 mmol/L (3.5-5.1)
[2024-11-11 07:41] LABS: BASOPHILS % (AUTO) 0.4 % (0.0-2.0); EOSINOPHILS % (AUTO) 0.1 % (0.0-6.0); HEMATOCRIT 41 % (33-45); LYMPHOCYTES # (AUTO) 1.1 K/uL (0.8-4.8); MEAN CORPUSCULAR HEMOGLOBIN 28 PG (26.0-33.0); MEAN CORPUSCULAR HGB CONC 34 g/dl (31.0-36.0); MEAN CORPUSCULAR VOLUME 83 fL (82-100); MONOCYTES % (AUTO) 16.5 % (2.0-12.0); NEUTROPHILS # (AUTO) 3.7 K/uL (1.8-8.9); PLATELET COUNT (AUTO) 134 K/uL (150-450); RED BLOOD CELL COUNT(AUTO) 4.99 MIL/uL (4.0-5.2); RED CELL DISTRIBUTION WIDTH 19.2 % (11.5-15.0); WHITE BLOOD COUNT (AUTO) 5.8 K/uL (4.3-11.0)
[2024-11-11] MEDS: FAMOTIDINE (20 MG) 20 MG TABLET PO SCH (08:12)
[2024-11-11] MEDS: FERROUS SULFATE (325 MG) 325 MG/TAB TABLET PO SCH (08:12)
[2024-11-11 16:00] VITALS: BP 97/57; TEMP 98.2; O2SAT 93
[2024-11-11 20:39] VITALS: BP 107/74; TEMP 98.8; O2SAT 98
[2024-11-12 04:13] VITALS: BP 123/74; TEMP 98.4; O2SAT 94
[2024-11-12 04:14] VITALS: BP 123/74; TEMP 98.4; O2SAT 95
[2024-11-12 06:39] LABS: BASOPHILS % (AUTO) 0.3 % (0.0-2.0); EOSINOPHILS # (AUTO) 0.1 K/uL (0.0-0.7); EOSINOPHILS % (AUTO) 1.1 % (0.0-6.0); HEMATOCRIT 44 % (33-45); HEMOGLOBIN 14.6 g/dL (11.5-14.8); LYMPHOCYTES # (AUTO) 1.5 K/uL (0.8-4.8); LYMPHOCYTES % (AUTO) 20.7 % (20.0-44.0); MEAN CORPUSCULAR HEMOGLOBIN 28 PG (26.0-33.0); MEAN CORPUSCULAR HGB CONC 33 g/dl (31.0-36.0); MEAN CORPUSCULAR VOLUME 84 fL (82-100); MONOCYTES % (AUTO) 14.6 % (2.0-12.0); NEUTROPHILS # (AUTO) 4.4 K/uL (1.8-8.9); NEUTROPHILS % (AUTO) 63.3 % (43.0-81.0); PLATELET COUNT (AUTO) 132 K/uL (150-450); RED BLOOD CELL COUNT(AUTO) 5.27 MIL/uL (4.0-5.2); RED CELL DISTRIBUTION WIDTH 19.1 % (11.5-15.0)
[2024-11-12 06:41] LABS: CALCIUM, SERUM 8.3 mg/dL (8.5-10.1); CREATININE 0.9 mg/dL (0.6-1.3); POTASSIUM 3.2 mmol/L (3.5-5.1)
[2024-11-12 07:00] VITALS: BP 124/98; TEMP 98.4; O2SAT 94
[2024-11-12] MEDS: POTASSIUM CHLORIDE 20 MEQ TAB.PRT.SR PO SCH (11:21)
[2024-11-12 12:00] VITALS: BP 111/68; TEMP 98.4; O2SAT 95
[2024-11-12 16:00] VITALS: BP 107/69; TEMP 98.4; O2SAT 95
[2024-11-12 20:00] VITALS: BP 116/73; TEMP 99.1; O2SAT 97
[2024-11-13] VITALS: BP 120/64; TEMP 98.7; O2SAT 96
[2024-11-13 07:30] VITALS: BP 119/74; TEMP 99.1; O2SAT 94
[2024-11-13 07:36] LABS: BASOPHILS % (AUTO) 0.4 % (0.0-2.0); EOSINOPHILS # (AUTO) 0.2 K/uL (0.0-0.7); EOSINOPHILS % (AUTO) 2.8 % (0.0-6.0); HEMATOCRIT 42 % (33-45); LYMPHOCYTES # (AUTO) 1.6 K/uL (0.8-4.8); LYMPHOCYTES % (AUTO) 24.1 % (20.0-44.0); MEAN CORPUSCULAR HEMOGLOBIN 28 PG (26.0-33.0); MEAN CORPUSCULAR HGB CONC 34 g/dl (31.0-36.0); MEAN CORPUSCULAR VOLUME 82 fL (82-100); MONOCYTES # (AUTO) 0.8 K/uL (0.1-1.30); MONOCYTES % (AUTO) 12.1 % (2.0-12.0); NEUTROPHILS # (AUTO) 3.9 K/uL (1.8-8.9); NEUTROPHILS % (AUTO) 60.6 % (43.0-81.0); PLATELET COUNT (AUTO) 143 K/uL (150-450); RED BLOOD CELL COUNT(AUTO) 5.06 MIL/uL (4.0-5.2); RED CELL DISTRIBUTION WIDTH 18.9 % (11.5-15.0); WHITE BLOOD COUNT (AUTO) 6.5 K/uL (4.3-11.0)
[2024-11-13 08:55] LABS: CALCIUM, SERUM 8.5 mg/dL (8.5-10.1); CREATININE 0.8 mg/dL (0.6-1.3); POTASSIUM 3.3 mmol/L (3.5-5.1)
[2024-11-13] MEDS ORDERED: AZIT250T13 PO (09:02)
[2024-11-13 13:51] LABS: AMPHETAMINE, URINE NEGATIVE (NEGATIVE); BARBITURATE, URINE NEGATIVE (NEGATIVE); BENZODIAZEPINE, URINE NEGATIVE (NEGATIVE); CANNABINOID, URINE NEGATIVE (NEGATIVE); COCCAINE, URINE NEGATIVE (NEGATIVE); PHENCYCLIDINE SCREEN,URINE NEGATIVE (NEGATIVE)
[2024-11-13 13:53] LABS: OPIATE, URINE POSITIVE (NEGATIVE)
[2024-11-13 16:00] VITALS: BP 123/79; TEMP 100.4; O2SAT 94
[2024-11-14] MEDS: AZITHROMYCIN 250 MG TABLET PO SCH (05:52)
[2024-11-14 07:30] VITALS: BP_SYST 114; BP_SYST 118; BP_DIAS 60; BP_DIAS 76; TEMP 98.8; TEMP 99.5; O2SAT 91; O2SAT 96
[2024-11-14 16:00] VITALS: BP 116/78; TEMP 99.3; O2SAT 90
[2024-11-14 20:00] VITALS: BP 120/70; TEMP 98.6; O2SAT 90
[2024-11-14] MEDS: POTASSIUM CHLORIDE 20 MEQ TAB.PRT.SR PO ONE (21:07)
== END 2024-11-14 21:46 | DRG 139 ==
LOC: ER 01:58 → TRANSITION 05:19 → TELE 08:52 → MED 11-13 06:46
PROVIDERS: ADMIT Nurse Practitioner Acute Care; ATTEND Internal Medicine
DX: J12.9 Viral pneumonia, unspecified (principal); J96.01 Acute respiratory failure with hypoxia; E87.20 Acidosis, unspecified; J15.9 Unspecified bacterial pneumonia; J44.1 Chronic obstructive pulmonary disease with (acute) exacerbation; E86.0 Dehydration; Z87.442 Personal history of urinary calculi; K21.9 Gastro-esophageal reflux disease without esophagitis; Z87.891 Personal history of nicotine dependence; R74.01 Elevation of levels of liver transaminase levels; Z20.822 Contact with and (suspected) exposure to COVID-19; F31.9 Bipolar disorder, unspecified; F20.9 Schizophrenia, unspecified; R45.851 Suicidal ideations; B34.9 Viral infection, unspecified; J44.0 Chronic obstructive pulmonary disease with (acute) lower respiratory infection
CPT/HCPCS: 36415; 71045-TC; 80048-TC; 80053-TC; 81001; 82248-TC; 83605-TC; 83735-TC; 83880; 84100-TC; 84484-TC; 85025-TC; 87040-TC; 87081-TC; 97110-TC; 97112-TC; 97116-TC; 97530-TC; 97535-TC; A4223; G0378; J0456; J0696; J1650; J2270; J2405; J2470; J3490; J7030; J7060

== ENCOUNTER 2024-11-14 22:45 | Inpatient (IN) | payer OTHER ==
[~2024-11-14] VITALS: Ht 157.5 cm; Wt 65.3 kg
[~2024-11-14 22:45] MED LIST changes: -ASPI-869 PO; +ATOR40TA PO; +AZIT250T13 PO; -CEPH500C2 PO; -CYCL5TAB PO; +DOCU100C36 PO; +FAMO20TA8 PO; +FERR325T24 PO; +GABA300C PO; +LORA-259 PO; +MAGN400O6 PO; -NAPR-1192 PO; -PRED20TA PO; +QUET200T PO; +QUET300T2 PO; -SULF1TAB48 PO; +TEMA15CA PO; -TRAM50TA2 PO
[2024-11-14 23:00] VITALS: BP 104/60; TEMP 99; O2SAT 100
[2024-11-14] MEDS ORDERED: TEMAZEPAM 7.5 MG CAPSULE PO PRN ×2 (23:00)
[2024-11-14] MEDS ORDERED: clonazePAM 1 MG TABLET PO PRN (23:00)
[2024-11-14] MEDS ORDERED: MAGNESIUM HYDROXIDE 30 ML UDC PO PRN (23:00)
[2024-11-14] MEDS ORDERED: MAG HYDROX/AL HYDROX/SIMETH 30 ML UDC PO PRN (23:00)
[2024-11-14] MEDS ORDERED: clonazePAM 0.5 MG TABLET PO PRN (23:00)
[2024-11-14 23:28] VITALS: BP 115/63; TEMP 98; O2SAT 97
[2024-11-15] MEDS ORDERED: MAGNESIUM HYDROXIDE 30 ML UDC PO PRN
[2024-11-15] MEDS: BLOOD SUGAR DIAGNOSTIC 1 EACH STRIP IN ONE (01:19)
[2024-11-15] MEDS: TRAMADOL HCL 50 MG TABLET PO PRN (05:32)
[2024-11-15 07:33] LABS: BASOPHILS % (AUTO) 0.3 % (0.0-2.0); EOSINOPHILS # (AUTO) 0.2 K/uL (0.0-0.7); EOSINOPHILS % (AUTO) 3.1 % (0.0-6.0); HEMATOCRIT 43 % (33-45); HEMOGLOBIN 14.8 g/dL (11.5-14.8); LYMPHOCYTES # (AUTO) 1.4 K/uL (0.8-4.8); MEAN CORPUSCULAR HEMOGLOBIN 28 PG (26.0-33.0); MEAN CORPUSCULAR HGB CONC 34 g/dl (31.0-36.0); MEAN CORPUSCULAR VOLUME 82 fL (82-100); MONOCYTES # (AUTO) 0.7 K/uL (0.1-1.30); MONOCYTES % (AUTO) 8.7 % (2.0-12.0); NEUTROPHILS # (AUTO) 5.7 K/uL (1.8-8.9); NEUTROPHILS % (AUTO) 70.9 % (43.0-81.0); PLATELET COUNT (AUTO) 169 K/uL (150-450); RED BLOOD CELL COUNT(AUTO) 5.32 MIL/uL (4.0-5.2); RED CELL DISTRIBUTION WIDTH 18.9 % (11.5-15.0)
[2024-11-15 08:00] VITALS: BP 116/71; TEMP 98; O2SAT 95
[2024-11-15] MEDS ORDERED: clonazePAM 0.5 MG TABLET PO PRN (08:00)
[2024-11-15] MEDS ORDERED: TEMAZEPAM 7.5 MG CAPSULE PO PRN (08:00)
[2024-11-15] MEDS: GABAPENTIN 300 MG CAPSULE PO SCH (08:04)
[2024-11-15] MEDS: FAMOTIDINE (20 MG) 20 MG TABLET PO SCH (08:04)
[2024-11-15] MEDS: AZITHROMYCIN 250 MG TABLET PO SCH (08:04)
[2024-11-15] MEDS: FERROUS SULFATE (325 MG) 325 MG/TAB TABLET PO SCH (08:04)
[2024-11-15] MEDS: DOCUSATE SODIUM 100 MG CAPSULE PO SCH (08:04)
[2024-11-15 08:10] LABS: CALCIUM, SERUM 9.1 mg/dL (8.5-10.1); CREATININE 0.8 mg/dL (0.6-1.3); POTASSIUM 4.2 mmol/L (3.5-5.1)
[2024-11-15] MEDS ORDERED: GABAPENTIN 300 MG CAPSULE PO SCH (09:00)
[2024-11-15] MEDS: QUETIAPINE FUMARATE 100 MG TABLET PO SCH ×2 (09:36→21:17)
[2024-11-15 16:00] VITALS: BP 114/68; TEMP 97.5; O2SAT 100
[2024-11-15] MEDS: ATORVASTATIN 40 MG TABLET PO SCH (21:17)
[2024-11-15 22:19] VITALS: BP 120/67; TEMP 98; O2SAT 100
[2024-11-16 08:00] VITALS: BP 105/57; TEMP 98.4; O2SAT 100
[2024-11-16 15:11] VITALS: BP 117/85; TEMP 97.9; O2SAT 98
[2024-11-16 20:40] VITALS: BP 124/82; TEMP 97.9; O2SAT 100
[2024-11-17 08:00] VITALS: BP 100/85; TEMP 98.1; O2SAT 97
[2024-11-17 16:00] VITALS: BP 99/71; TEMP 97.9; O2SAT 95
[2024-11-17 22:24] VITALS: BP 102/66; TEMP 97.9; O2SAT 95
[2024-11-18 08:00] VITALS: BP 100/62; TEMP 97.9; O2SAT 98
[2024-11-18 16:00] VITALS: BP 114/62; TEMP 97.9; O2SAT 97
[2024-11-18 22:52] VITALS: BP 103/60; TEMP 97.9; O2SAT 96
[2024-11-19 08:00] VITALS: BP 103/64; TEMP 97.8; O2SAT 100
[2024-11-19 16:00] VITALS: BP 96/64; TEMP 97.8; O2SAT 96
[2024-11-19 20:14] VITALS: BP 95/73; TEMP 98.4; O2SAT 96
[2024-11-19] MEDS: QUETIAPINE FUMARATE 100 MG TABLET PO SCH (21:05)
[2024-11-20 08:00] VITALS: BP 101/65; TEMP 98.6; O2SAT 95
[2024-11-20 16:00] VITALS: BP 109/58; TEMP 97.7; O2SAT 97
[2024-11-20 20:28] VITALS: BP 114/73; TEMP 98.3; O2SAT 98
[2024-11-21 08:00] VITALS: BP 110/67; TEMP 98; O2SAT 95
== END 2024-11-21 13:45 | disposition home or self-care (01) | DRG 751 ==
LOC: GPS 22:45
PROVIDERS: ADMIT Psychiatry & Neurology Psychiatry; ATTEND Student in an Organized Health Care Education/Training Program
DX: F32.3 Major depressive disorder, single episode, severe with psychotic features (principal); F41.9 Anxiety disorder, unspecified; J44.9 Chronic obstructive pulmonary disease, unspecified; K21.9 Gastro-esophageal reflux disease without esophagitis; R74.01 Elevation of levels of liver transaminase levels; Z87.891 Personal history of nicotine dependence
CPT/HCPCS: 36415; 80048-TC; 80061-TC; 85025-TC; 97110-TC; 97116-TC; 97530-TC